=== PATIENT | female | born 1965 | race Caucasian/White ===

== ENCOUNTER 2024-08-13 05:48 | Day surgery (SDC) | payer OTHER ==
[2024-08-13] MEDS ORDERED: Sodium Chloride 0.9% 1,000 ML IV SCH (06:00)
[2024-08-13] MEDS ORDERED: Midazolam 1 MG/ML 2 ML SDV ONE (06:08)
[2024-08-13] MEDS ORDERED: fentaNYL 100 MCG/2 ML SDV ONE (06:09)
[2024-08-13] MEDS: Sodium Chloride 0.9% 500 ML IV SCH (06:22)
[2024-08-13] MEDS: fentaNYL 100 MCG/2 ML SDV IV ONE ×2 (06:47)
[2024-08-13] MEDS: Midazolam 1 MG/ML 2 ML SDV IV ONE ×5 (06:48→06:58)
[2024-08-13 09:04] VITALS: BP 129/77; PULSE 61
== END 2024-08-13 09:21 | disposition home or self-care (01) ==
LOC: DL.ENDO 05:48
PROVIDERS: ATTEND Internal Medicine Gastroenterology
DX: Z12.11 Encounter for screening for malignant neoplasm of colon (principal)
CPT/HCPCS: J2250; J3010; J7040